=== PATIENT | female | born 1975 | race Two or more races ===

== ENCOUNTER 2019-08-29 09:15 | Inpatient (IN) | payer OTHER ==
[~2019-08-29] VITALS: Ht 180.3 cm; Wt 68.0 kg
[2019-09-05] MEDS ORDERED: OXYC1TAB9 PO (12:10)
[2019-09-05] MEDS ORDERED: INTESTINEX680 M1 PO (12:10)
[2019-09-05] MEDS ORDERED: KETO10TA2 PO (12:11)
== END 2019-09-05 14:12 | disposition home or self-care (01) | DRG 331 ==
LOC: O/R 09-01 08:57 → SURH 09-01 08:57 → O/R 09-01 09:15 → SURH 09-01 18:09
PROVIDERS: Surgery; ADMIT Obstetrics & Gynecology Gynecologic Oncology; ATTEND Obstetrics & Gynecology Gynecologic Oncology
PROC: 0UT74ZZ Resection of Bilateral Fallopian Tubes, Percutaneous Endoscopic Approach (ICD-10-PCS; 2019-09-01)
PROC: 0DNN4ZZ Release Sigmoid Colon, Percutaneous Endoscopic Approach (ICD-10-PCS; 2019-09-01)
PROC: 0DTP4ZZ Resection of Rectum, Percutaneous Endoscopic Approach (ICD-10-PCS; 2019-09-01)
PROC: 0UT24ZZ Resection of Bilateral Ovaries, Percutaneous Endoscopic Approach (ICD-10-PCS; 2019-09-01)
PROC: 0U5B4ZZ Destruction of Endometrium, Percutaneous Endoscopic Approach (ICD-10-PCS; 2019-09-01)
PROC: 0DJD8ZZ Inspection of Lower Intestinal Tract, Via Natural or Artificial Opening Endoscopic (ICD-10-PCS; 2019-09-01)
PROC: 0DBN4ZZ Excision of Sigmoid Colon, Percutaneous Endoscopic Approach (ICD-10-PCS; principal; 2019-09-01 13:30)
PROC: 0UBG4ZX Excision of Vagina, Percutaneous Endoscopic Approach, Diagnostic (ICD-10-PCS; 2019-09-01 13:30)
DX: N80.5 Endometriosis of intestine (principal); N80.0 Endometriosis of uterus; N80.1 Endometriosis of ovary; N80.3 Endometriosis of pelvic peritoneum; N80.4 Endometriosis of rectovaginal septum and vagina; N83.291 Other ovarian cyst, right side; K60.1 Chronic anal fissure; K66.0 Peritoneal adhesions (postprocedural) (postinfection)

== ENCOUNTER → 2020-09-20 | Day surgery (SDC) | payer OTHER ==
[~2020-09-20] MED LIST: INTESTINEX680 M1 PO; KETO10TA2 PO; OXYC1TAB9 PO
== END | disposition home or self-care (01) ==
LOC: ADM 09-13 13:45 → AMB-ENDOS 12:11
PROVIDERS: ATTEND Surgery
DX: K62.89 Other specified diseases of anus and rectum (principal); Z20.822 Contact with and (suspected) exposure to COVID-19

== ENCOUNTER 2022-02-12 05:45 | Day surgery (SDC) | payer OTHER ==
[~2022-02-12] VITALS: Ht 154.9 cm; Wt 73.5 kg
[2022-02-12] MEDS ORDERED: ULTRAM50 MG PO (09:17)
[2022-02-12] MEDS ORDERED: PROTONIX40 MG PO (09:17)
[2022-02-12] MEDS ORDERED: KETO10TA2 PO (09:17)
== END 2022-02-12 11:30 | disposition home or self-care (01) ==
LOC: CIR.AMB 05:45
PROVIDERS: ATTEND Surgery
DX: K81.1 Chronic cholecystitis (principal); K59.09 Other constipation; R10.13 Epigastric pain; Z20.822 Contact with and (suspected) exposure to COVID-19